=== PATIENT | female | born 1985 | race Caucasian/White ===

== ENCOUNTER 2022-08-28 12:53 | Emergency (ER) | payer OTHER, SELFPAY ==
--- NOTE | ~2022-08-28 | US_ITS ---
US venous doppler [facility] DATE: 08/28/2022 13:49 INDICATION: Left calf pain TECHNIQUE: Real-time and color flow imaging and Doppler analysis of the veins of the left lower extre mity COMPARISON: None FINDINGS: The left greater saphenous vein is patent. There is spontaneous and phasic flow and normal augmentation and color flow signal and normal compression of the deep veins of the left leg. IMPRESSION: No evidence of deep venous thrombosis of left lower extremity Reviewed, dictated and finalized at [facility]. Reviewed, dictated and finalized at location []
[2022-08-28 12:55] VITALS: BP 117/83; PULSE 61; RESP 18; TEMP 36.3; O2SAT 100
--- NOTE | 2022-08-28 13:39 | ED.LOWEXIN ---
HPI - Extremity Injury (Lower) General Chief Complaint: Extremity Injury, Lower Stated Complaint: left calf pain Time Seen by Provider: 08/28/22 13:18 History of Present Illness HPI Narrative: 36-year-old female presents to the emergency room for evaluation of left calf pain. Patient states she began experiencing left calf pain yesterday while walking, and this morning she felt a ripping sensation in her left calf. Patient describes pain as stabbing. Pain is worse when ambulating. Has not taken any medications for her symptoms. No history of DVTs. Patient denies coagulopathy disorder. Patient is not on control. Patient denies long periods of immobility. Related Data Allergies Allergy/AdvReac Type Severity Reaction Status Date / Time tramadol Allergy Intermediate SEVERE Verified 08/28/22 13:12 ITCHING Sulfa (Sulfonamide Allergy Mild Hives / Verified 08/28/22 13:12 Antibiotics) Red Face Review of Systems Review of Systems: CONSTITUTIONAL: Denies fever, chills, or sweats. EYES: Denies visual changes, redness, or discharge. ENT: Denies rhinorrhea, congestion, sore throat, or otalgia. CARDIOVASCULAR: Denies chest pain, palpitations, or edema. RESPIRATORY: Denies cough or dyspnea. GASTROINTESTINAL: Denies abdominal pain, nausea, vomiting, or diarrhea. GENITOURINARY: Denies dysuria or hematuria. SKIN: Denies rash or itching. MUSCULOSKELETAL: Reports left calf pain NEUROLOGIC: Denies headache, numbness, dizziness, or weakness. PSYCHIATRIC: Denies anxiety or depression. Exam Narrative: GENERAL: Well-appearing, well-nourished, no physical limitations, and in no acute distress. HEAD: Normocephalic, atraumatic. EYES: Conjunctivae normal, PERRLA and EOMI. CHEST: Clear to auscultation. No respiratory distress. No wheezes rales or rhonchi. HEART: Regular rate and rhythm. No murmur heard. Normal peripheral pulses. EXTREMITIES: LLE: Muscle spasm noted to left calf. Positive Homans' sign. No ecchymosis, swelling or erythema noted. SKIN: Warm, dry, no rash. No noted wounds NEURO: No focal deficits. Alert and oriented x3. MAEW. CN's II-XI intact bilaterally, normal gait PSYCH: Cooperative. Normal mood and affect. Course Vital Signs Vital signs: Vital Signs Temperature 36.3 C L 08/28/22 12:55 Pulse Rate 61 08/28/22 12:55 Respiratory Rate 18 08/28/22 12:55 Blood Pressure 117/83 08/28/22 12:55 Pulse Oximetry 100 08/28/22 12:55 Oxygen Delivery Room Air 08/28/22 12:55 Temperature 36.3 C L 08/28/22 12:55 Pulse Rate 61 08/28/22 12:55 Respiratory Rate 18 08/28/22 12:55 Blood Pressure 117/83 08/28/22 12:55 Pulse Oximetry 100 08/28/22 12:55 Oxygen Delivery Room Air 08/28/22 12:55 Discharge Plan Discharge Clinical Impression: Muscle spasm Patient Disposition: Home, Self-Care Condition: Stable Instructions: Antibiotic Form Prescriptions: New naproxen 500 mg tablet 500 mg PO BID Qty: 20 0RF methocarbamol 500 mg tablet 500 mg PO TID Qty: 21 0RF Follow-up/Referrals: Landon Jimenez MD [Primary Care Provider] - Time of Disposition: 14:11
== END 2022-08-28 14:15 | disposition home or self-care (01) ==
PROVIDERS: Emergency Provider Nurse Practitioner Family; PCP Emergency Medicine
DX: M62.831 Muscle spasm of calf (principal)
CPT/HCPCS: 93971; 99284

== ENCOUNTER 2023-03-11 14:52 | Emergency (ER) | payer OTHER, SELFPAY ==
[2023-03-11] VITALS (8 sets, daily range): BP systolic 112–140; BP diastolic 56–83; PULSE 71–89; RESP 12–20; TEMP 35.9–36.4; O2SAT 98–100
--- NOTE | ~2023-03-11 | CT_ITS ---
EXAMINATION: CT abdomen pelvis w con DATE: 03/11/2023 17:51 INDICATION: Left lower abdominal pain. Left lower back pain. Nausea and vomiting. TECHNIQUE: Computed tomography (CT) of the abdomen and pelvis was performed with 100 mL Omnipaque 350 intravenous contrast. Automated exposure control and iterative reconstruction technique were employe d. The dose-length product was 1405.30 mGy-cm. COMPARISON: CT abdomen and pelvis 07/19/2010 FINDINGS: The visualized portions of the lung bases are clear without pneumonia or pleural effusion. The heart size is normal. No pericardial effusion. There are cysts in the liver measuring up to 13 mm the gallbladder, spleen, pancreas, and adrenal glands are normal. There are cysts in the kidneys bruno suring up to 12 mm on the right. There is a left-sided tube ligation clip. The right-sided tubal liga tion clip is dislodged. There are no dilated loops of bowel. The appendix is normal. There are no pat hologically enlarged lymph nodes. There is no free intraperitoneal fluid. There is mild thoracic and lumbar spondylosis. IMPRESSION: 1. No etiology for the patient's symptoms. Reviewed, dictated and finalized at location E. OL PSYCHOLOGIST ASSISTANT
--- NOTE | ~2023-03-11 | XR_ITS ---
EXAMINATION: XR chest 1V portable DATE: 03/11/2023 17:54 INDICATION: Abdominal pain. TECHNIQUE: A single frontal view of the chest was obtained. COMPARISON: CT abdomen and pelvis 03/11/2023 FINDINGS: There is no pneumonia, pleural effusion, or pneumothorax. The heart size is normal. IMPRESSION: 1. No acute cardiopulmonary disease. Reviewed, dictated and finalized at location E. RNAL RECRUITER
[2023-03-11 15:43] LABS: Basophils Percent Auto 0.2 % (0.2-1.2); Eosinophils Percent Auto 0.1 % (0-4.4); Hematocrit 45.9 % (37.0-47.0); Hemoglobin 14.8 g/dL (12.0-15.0); Immature Granulocyte Absolute 0.08 K/mm3 (0.00-0.031); Immature Granulocyte Percent A 0.4 % (0-0.5); Lymphocytes Absolute Auto 1.16 K/mm3 (0.9-3.2); Lymphocytes Percent Auto 6.5 % (18.3-44.2); Mean Corpuscular HGB Conc 32.2 g/dl (32-36); Mean Corpuscular Hemoglobin 29.7 pg (26-34); Mean Corpuscular Volume 92.2 fl (80-100); Mean Platelet Volume 8.4 fl (7.4-10.4); Monocytes Percent Auto 5.8 % (2.6-8.5); Neutrophils Absolute Auto 15.5 K/mm3 (1.3-6.7); Platelet Count Result 323 k/mm3 (150-375); Red Blood Count 4.98 M/mm3 (4.2-5.4); Red Cell Distribution Width 12.8 % (11.5-14.5); White Blood Count 17.8 K/mm3 (4.5-10.0)
[2023-03-11 15:53] LABS: Alanine Aminotransferase 21 U/L (6-35); Alkaline Phosphatase 96 U/L (38-126); Anion Gap 9 mmol/L (8-16); Aspartate Amino Transferase 22 U/L (14-36); Bilirubin,Total 0.8 mg/dL (0.2-1.3); Blood Urea Nitrogen 14 mg/dL (7-17); Calcium 8.9 mg/dL (8.4-10.2); Carbon Dioxide 23 mmol/L (22-30); Chloride 106 mmol/L (98-107); Estimated CRCL calculation 108 ml/min; Estimated Glomerular Filt Rate > 60; Glucose 99 mg/dL (65-110); Lipase 80 U/L (23-300); Potassium 3.7 mmol/L (3.4-5.0); Sodium 138 mmol/L (137-145)
[2023-03-11 16:30] LABS: Appearance Urine Turbid (Clear); Bacteria Urine 4+ /hpf; Bilirubin Urine Negative (Negative); Blood Urine Trace (Negative); Color Urine Yellow (Yellow); Glucose Urine UA Negative (Negative); Ketones Urine Trace mg/dL (Negative); Leukocyte Esterase Ur 1+ LEU/UL (Negative); Need Manual Microscopic Reviewed; Nitrate Urine Negative (Negative); Non Pathogenic Casts 0-2; Protein Urine Negative (Negative); RBC Urine 0-2 /hpf (0-2); Specific Grav Ur 1.022 (1.001-1.035); Squamous Epithelial Cell Urine Many /hpf (Few); Urobilinogen Urine 0.2 mg/dL (<2.0); WBC Urine 0-5 /hpf
[2023-03-11 16:31] LABS: Add Urine Microscopic? YES
--- NOTE | 2023-03-11 17:30 | ECG_ITS ---
Measurements Intervals Grant Rate: 71 P: 49 MO: 163 QRS: 38 QRSD: 97 T: 31 QT: 417 QTc: 454 Interpretive Statements SINUS RHYTHM LOW QRS VOLTAGE IN PRECORDIAL LEADS [QRS DEFLECTION < 1.0 mV IN CHEST LEADS] BASELINE ARTIFACT BORDERLINE ECG NO PREVIOUS ECG AVAILABLE FOR COMPARISON Electronically Signed On 03-12-2023 15:33:45 [employer] by Mathew Hooper M.D.
--- NOTE | 2023-03-11 17:35 | ED.ABDPAIN ---
HPI - Abdominal Pain General Chief Complaint: Abdominal Pain Stated Complaint: abd pain/n/v Time Seen by Provider: 03/11/23 15:44 Source: patient Limitations: no limitations History of Present Illness HPI narrative: Patient is a 37-year-old female presents to the emergency department complaining of abdominal pain. Patient states around 5:30 a.m. this morning she gradually developed abdominal pain, nausea, vomiting, diarrhea. patient states the pain is mostly in the left side of her abdomen and wraps around to her back but is also diffuse throughout her abdomen, feels like contractions, constant, has not noticed anything making it better or worse, his to a similar history of this type of pain in the past when she had a urinary tract infection denies taking anything for the pain. Patient states that she has had multiple episodes of nonbloody nonbilious emesis today. Patient states her diarrhea has been watery without any blood in it or Dr. Nature and she has had 4 episodes today. Patient admits to some slight abdominal cramping yesterday but is much worse today. Patient was her last menstrual period was March 09. Patient admits to history of a tubal ligation. Patient admits to taking his Zofran at home. Patient denies history of kidney stones. Patient denies dysuria, hematuria, urinary frequency, urinary urgency, chest pain, shortness of breath, cough, numbness, weakness, sore throat, nasal congestion, rash, recent injuries, recent illness. Patient denies vaginal bleeding or vaginal discharge. Related Data Allergies Allergy/AdvReac Type Severity Reaction Status Date / Time tramadol Allergy Intermediate SEVERE Verified 03/11/23 15:46 ITCHING Sulfa (Sulfonamide Allergy Mild Hives / Verified 03/11/23 15:46 Antibiotics) Red Face Review of Systems Review of Systems: A 10 system review of systems was completed on the patient and is negative except for what is stated in the HPI. Nursing and ancillary documentation was reviewed. PMFSH Comments At time of signature, I have reviewed and agree with nursing past medical, surgical, social and family history unless otherwise noted. Please see the nursing chart for further information. There is no relevant family history pertinent to the presenting complaint. Exam Narrative: CONST: No acute distress. Well nourished. HENMT: Head is normocephalic and atraumatic. Dry mucous membranes. No posterior oropharynx erythema. EYES: No conjunctival icterus, injection, or pallor. PERRL. NECK: No meningeal signs. RESP: Able to speak in full sentences. Normal respiratory effort. CTAB. CARDIO: Regular rate. Regular rhythm. 2+ DP and radial pulses bilaterally. GI: Nondistended. Soft. mild tenderness to palpation diffusely but more prominent in the left mid abdominal region. No rebound or guarding or rigidity. No McBurney's point tenderness palpation. Her negative Hernández sign. Negative psoas sign, Rovsing sign, obturator's sign. No palpable masses or hernias. : No CVA tenderness to palpation. SKIN: No rashes or lesions noted on exposed skin. NEURO: Oriented x3. Moves all extremities. EXTREM/MSK/BACK: No pedal edema. PSYCH: Normal affect. Course Vital Signs Vital signs: Vital Signs Temperature 96.7 F L 03/11/23 15:12 Pulse Rate 89 03/11/23 15:12 Respiratory Rate 20 03/11/23 15:12 Blood Pressure 140/83 03/11/23 15:12 Pulse Oximetry 100 03/11/23 15:12 Oxygen Delivery Room Air 03/11/23 15:12 Temperature 96.7 F L 03/11/23 15:12 Pulse Rate 76 03/11/23 18:46 Respiratory Rate 14 03/11/23 18:46 Blood Pressure 114/70 03/11/23 18:46 Pulse Oximetry 100 03/11/23 18:46 Oxygen Delivery Room Air 03/11/23 15:12 MDM - Abdominal Pain MDM Narrative Medical decision making narrative: Patient presents with the above complaint. Initial vitals are remarkable for no significant abnormalities. Physical examination as noted above
[2023-03-11 18:00] LABS: Magnesium 1.5 mg/dL (1.6-2.3)
[2023-03-11 18:03] LABS: Prothrombin Time 13.3 Seconds (11.1-14.7)
[2023-03-11] MEDS: SODIUM CHLORIDE 0.9% IV 1,000 ML 999 ML IV CONT (18:04)
[2023-03-11] MEDS: ONDANSETRON INJ 4 MG/2 ML VIAL IV PUSH (18:05)
[2023-03-11] MEDS: KETOROLAC 15 MG/ML VIAL (*BKC) IV PUSH (18:05)
[2023-03-11] MEDS: FAMOTIDINE 20 MG/2 ML VIAL IV PUSH (18:06)
[2023-03-11 18:13] LABS: Troponin I < 0.012 ng/mL (0.000-0.034)
[2023-03-11 18:17] LABS: Lactic Acid Reflex 1.4 mmol/L (0.7-2.0)
[2023-03-11] MEDS: MAGNESIUM SULF 2 GM/WATER 50ML 2 GM/50 ML BAG IVPB (18:57)
[2023-03-11 19:04] LABS: Influenza A QL RT-PCR Negative (Negative); Influenza B QL RT-PCR Negative (Negative); SARS-CoV-2 RNA PCR Negative (Negative)
--- NOTE | 2023-03-11 19:10 | PC.NURSE ---
Report given to Tru REDDING, all questions answered.
== END 2023-03-11 20:00 | disposition home or self-care (01) ==
PROVIDERS: Emergency Provider Student in an Organized Health Care Education/Training Program
DX: K52.9 Noninfective gastroenteritis and colitis, unspecified (principal); E83.42 Hypomagnesemia; R10.9 Unspecified abdominal pain; Z20.822 Contact with and (suspected) exposure to COVID-19
CPT/HCPCS: 36415; 71045; 74177; 80053; 81001; 81025; 83605; 83690; 83735; 84484; 85025; 85610; 85730; 87636; 93005; 96361; 96365; 96375; 99284; J1885; J2405; J3475; J7030; Q9967

== ENCOUNTER 2024-06-12 18:12 | Emergency (ER) | payer OTHER, SELFPAY ==
--- NOTE | ~2024-06-12 | CT_ITS ---
EXAMINATION: CT abdomen pelvis wo con DATE: 06/12/2024 19:38 INDICATION: Left flank pain TECHNIQUE: Computed tomography (CT) of the abdomen and pelvis was performed without intravenous contr ast. Automated exposure control and iterative reconstruction technique were employed. Exam dose: 160 6.15 mGy-cm total exam DLP. COMPARISON: None. FINDINGS: The lung bases are clear. Normal heart size. No pericardial or pleural effusion. The liver, gallbladder, spleen, pancreas, adrenal glands and kidneys are unremarkable. No bile duct o r pancreatic duct dilatation. No urinary tract calculus or hydroureteronephrosis. Normal caliber of the abdominal aorta. No intraperitoneal or retroperitoneal or pelvic mass lesion or adenopathy or ascites. The uterus, adnexal areas and urinary bladder are unremarkable. Normal appendix. Diverticulosis of left and right colon; no CT evidence of diverticulitis. No bowel obstruction, bowel wall thickening, pneumatosis or intraperitoneal free air. Small fat-containing umbilical hernia. Included skeletal structures are unremarkable. IMPRESSION: Normal appendix Mild diverticulosis of left and right colon; no CT evidence of diverticulitis No urinary tract calculus or hydroureteronephrosis Reviewed, dictated and finalized at [facility]. Reviewed, dictated and finalized at [facility].
--- OUTSIDE RECORDS SUMMARY | 2024-06-12 18:14 | XMS_ITS | Referral Summary ---
Author Organization 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 Name Role Phone Unknown, Notinfile Primary Care Provider Unavail able Allergies Active Allergy Reactions Criticality Noted Date Comments Sulfa (Sulfonamide Antibiotics) Hives Medium 09/21 Medications No known medications Active Problems No known active problems Immunizations Immunization Administration Dates Next Due DTP 10/27/1991, 9,08/23/1987,05/17,05/04/1987,02/22/1987 Hep B, Adolescent or Pediatric 11/03/1997,1996,09/13/1996 HiB 11/07/1988,10/28/1988 Influenza, Quadrivalent, Spl it, Intramuscular 01/02/2017 Influenza, Trivalent, Preser vative Free, Intramuscular 02/07/2016 Influenza, Unspecified 11/22/2021(Deferred: Raissa ent decision) MMR 10/27/1991,02/21/1988 OPV 10/27/1991, 9,08/23/1987,05/17,05/04/1987,02/22/1987 Social History Tobacco Use Types Packs/Day Years Used Date Smoking Tobacco: Never Smokeless Tobacco: Never Tobacco Cessation:Counseling Given: Not Answered Personal Safety Answer Date Recorded Getting School Help Needed Not on file 05/21 Comments Unknown Sex and Gender Information Value Date Recorded Sex Assigned at Not on file Legal Sex 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
--- OUTSIDE RECORDS SUMMARY | 2024-06-12 18:14 | XMS_ITS | CONTINUITY OF CARE DOCUMENT ---
Author Name yi richmond Address Unknown Organization [facility] Address [address] [address] [place] [address] Phone [phone] Care Team Providers Care Insurance Executive Name Role Phone yi richmond Unavailable Unavailable INSURANCE PROVIDERS Payer name Policy type / Coverage type Yuri red republican [employer] Medicaid 1 [id number]
--- OUTSIDE RECORDS SUMMARY | 2024-06-12 18:14 | XMS_ITS | Data Portability ---
Author Organization [facility] [place] Address [address] [place] [address] Assessment No assessment recorded. Plan of Treatment Reminders Order Date Submit Date Provider Last Modified By Organization Details Last Modified Time Details Appointments None recorded. Lab urinalysi s, dipstick 2019 [email or web address] [address], [address], [place], [address], 0 17:53:07 Referral None recorded. Procedures None recorded. Surgeries None recorded. Imaging None recorded. Medication Orders Diflucan 150 mg tablet 2019 020 INTERFACE [id number], [address] [facility], [place], [place], [id number], 0 17:09:32 Cipro 500 mg tablet 2019 020 INTERFACE [facility][id number], [address] , [place], [place], [id number], 0 17:09:32 Patient TargetsNo targets recorded. Patient InstructionsNo instructions recorded. Reason for Referral None Reported. Results Created Date Observation Date Name Description Value Unit Range Abnormal Flag Note LastModifiedBy Organization Detail LastModifiedTime 01/17/2001/19/2020 cultu re, urine specimen source Urine - Void Not Available [facility]) [address] [facility] [address], [place], [address], 01/19/2020 04:56:42 01/17/20 20 01/19/2020 cultu re, urine culture, urine See Below No growt h Not Available [facility]) [address] [facility] [address] [address], [place], [address], 01/19/2020 04:56:42 01/17/20 20 01/18/2020 bacte rial vagin osis + vagin itis panel , vagin al freeman sp. Not Detect ed normal Trich omona s vagin gwen: DNA testi ng perfo rmed by Trans cript ion Media gely Ampli ficat ion (TMA) These resul ts shoul d be inter prete d in light of all clini nolberto and labor atory findi ngs. This assay is highl y accur ate, but rare false posit kaur and negat kaur resul ts may occur . Posit kaur resul ts in low preva lence popul ation s may requi re re-ev aluat ion. A negat kaur resul t does not precl ude a possi ble infec tion due to a speci men inade quacy or sampl ing error . Test perfo rmed by [facility], [facility], d/b/a [facility], [address] [address], [place] [address] , Gina Kessler ra, DO, Labor atory Direc tor. Gardn erell a vagin gwen, Promise da speci es: Genom ic DNA is isola gely from patie nt speci mens by stand anna labor atory techn iques and nigel zed using custo m OpenA rray plate s, perfo rmed on the Quant Studi o 12K Flex Real Time PCR syste m. A posit kaur resul t is provi ded for patho genic bacte faiza, virus and/o r funga l speci es based on detec tion of ampli ficat ion produ cts. Chichi l vagin al yamel resul ts of Chichi l or Avalon gely are deter mined by calcu latin g the ratio of the organ ism to the total bacte faiza prese nt in the speci men, and renetta ring that ratio to a PathG roup patie nt popul ation . Overa ll resul ts of Chichi l, Borde rline and Abnor mal are deter mined using a proba bilit y model which was devel oped by an exten sive nigel sis and integ ratio n of clini nolberto thres holds for marke r organ isms on a large set of sympt omati c & asymp tomat ic speci mens. Patie nt popul ation s with diffe rent demog raphi cs from the PathG roup model popul ation may have diffe rent indic ator organ isms with diffe rent relat kaur ratio s, which would influ ence the final resul ts. Resul ts shoul d be inter prete d in the mary lou xt of all clini nolberto and labor atory findi ngs. The test was devel oped and its perfo rmanc e parish cteri stics deter mined by [employer], [employer] d/b/a [facility]. It has not been clear ed or appro danyel by the U.S. Food and Drug Admin istra tion. The FDA has deter mined that such clear ance or appro jill is not neces anna. Perti nent refer ence inter vals are avail able from the [employer] atory on reque st. Test( s) perfo rmed by [employer], d/b/a Path rou, [address], [place] [address] , Gina Kessler ra, DO, Labor atory Direc tor. Not Available [facility] ([facility]) [address] [facility] [address], [place], [address], 01/19/2020 18:00:09 01/17/20 20 01/18/2020 bacte rial vagin osis + vagin itis panel , vagin al gardnerella vaginalis Not Detect ed normal Trich omona s vagin gwen: DNA testi ng perfo rmed by Trans cript ion Media gely Ampli ficat ion (TMA) These resul ts shoul d be inter prete d in light of all clini nolberto and labor atory findi ngs. This assay is highl y accur ate, but rare false posit kaur and negat kaur resul ts may occur . Posit kaur resul ts in low preva lence popul ation s may requi re re-ev aluat ion. A negat kaur resul t does not precl ude a possi ble infec tion due to a speci men inade quacy or sampl ing error . Test perfo rmed by [facility], d/b/a [facility] roubetzy, [address], [place] [address] , Gina Kessler ra, DO, Labor atory Direc tor. Aurea alonso a vagin gwen, Promise da speci es: Genom ic DNA is isola gely from patie nt speci mens by stand anna labor atory techn iques and nigel zed using custo m OpenA rray plate s, perfo rmed on the Quant Studi o 12K Flex Real Time PCR syste m. A posit kaur resul t is provi ded for patho genic bacte faiza, virus and/o r funga l speci es based on detec tion of ampli ficat ion produ cts. Chichi l vagin al yamel resul ts of Chichi l or Avalon gely are deter mined by calcu latin g the ratio of the organ ism to the total bacte faiza prese nt in the speci men, and renetta ring that ratio to a PathG roup patie nt popul ation . Overa ll resul ts of Chichi l, Borde rline and Abnor mal are deter mined using a proba bilit y model which was devel oped by an exten sive nigel sis and integ ratio n of clini nolberto thres holds for marke r organ isms on a large set of sympt omati c & asymp tomat ic speci mens. Patie nt popul ation s with diffe rent demog raphi cs from the PathG roup model popul ation may have diffe rent indic ator organ isms with diffe rent relat kaur ratio s, which would influ ence the final resul ts. Resul ts shoul d be inter prete d in the mary lou xt of all clini nolberto and labor atory findi ngs. The test was devel oped and its perfo rmanc e parish cteri stics deter mined by [employer], [employer] d/b/a Path rou. It has not been clear ed or appro danyel by the U.S. Food and Drug Admin istra tion. The FDA has deter mined that such clear ance or appro jill is not neces anna. Perti nent refer ence inter vals are avail able from the labor atory on reque st. Test( s) perfo rmed by [employer], [employer], d/b/a Path [facility], [address], [place] [address] , Gina Kessler ra, DO, Labor atory Direc tor. Not Available [facility] ([facility]) [address] [facility], [place], [address], 01/19/2020 18:00:09 01/17/20 20 01/19/2020 bacte rial vagin osis + vagin itis panel , vagin al trichomonas vaginalis, aptima (panther) DETECT ED abnormal Trich omona s vagin gwen: DNA testi ng perfo rmed by Trans cript ion Media gely Ampli ficat ion (TMA) These resul ts shoul d be inter prete d in light of all clini nolberto and labor atory findi ngs. This assay is highl y accur ate, but rare false posit kaur and negat kaur resul ts may occur . Posit kaur resul ts in low preva lence popul ation s may requi re re-ev aluat ion. A negat kaur resul t does not precl ude a possi ble infec tion due to a speci men inade quacy or sampl ing error . Test perfo rmed by [employer], [employer], d/b/a [facility]oup, [address], [place] [address] , Gina Kessler ra, DO, Labor atory Direc tor. Aurea alonso a vagela hidalgo, Promise da speci es: Genom ic DNA is isola gely from patie nt speci mens by stand anna labor atory techn iques and nigel zed using custo m OpenA rray plate s, perfo rmed on the Quant Studi o 12K Flex Real Time PCR syste m. A posit kaur resul t is provi ded for patho genic bacte faiza, virus and/o r funga l speci es based on detec tion of ampli ficat ion produ cts. Chichi l vagin al yamel resul ts of Chichi l or Avalon gely are deter mined by calcu latin g the ratio of the organ ism to the total bacte faiza prese nt in the speci men, and renetta ring that ratio to a PathG roup patie nt popul ation . Overa ll resul ts of Chichi l, Borde rline and Abnor mal are deter mined using a proba bilit y model which was devel oped by an exten sive nigel sis and integ ratio n of clini nolberto thres holds for marke r organ isms on a large set of sympt omati c & asymp tomat ic speci mens. Patie nt popul ation s with diffe rent demog raphi cs from the PathG roup model popul ation may have diffe rent indic ator organ isms with diffe rent relat kaur ratio s, which would influ ence the final resul ts. Resul ts shoul d be inter prete d in the mary lou xt of all clini nolberto and labor atory findi ngs. The test was devel oped and its perfo rmanc e parish cteri stics deter mined by [facility], [facility] d/b/a [facility] roup. It has not been clear ed or appro danyel by the U.S. Food and Drug Admin istra tion. The FDA has deter mined that such clear ance or appro jill is not neces anna. Perti nent refer ence inter vals are avail able from the labor atory on reque st. Test( s) perfo rmed by [facility], d/b/a [facility]ijay marroquin, [address] [place] [address] , Gina Kessler ra, DO, Labor atory Direc tor. Not Available [facility] ([facility]) [address] [facility], [place], [address], 01/19/2020 18:00:09 01/17/20 20 01/17/2020 urina lysis , dipst ick Leukocytes ++ Not Available [facility] [address], [place], [address], 01/17/2020 17:01:24 01/17/20 20 01/17/2020 urina lysis , dipst ick Blood ++ Not Available [place] [address], [place], [address], 01/17/2020 17:01:24 Result Notes None recorded. Problems Name Problem SNOMED Code Status Onset Date Resolution Date Notes Provider Name and Address Organization Details Recorded Time Nausea and vomiting 98917323 Active 2010 Nausea And Vomiting;R ecorded Elsewhere: No Locatio n: [facility] rce: EHR Chroni c: N Practice ID: 0001 Billa ble Time: 10:30:00 AM Not Available [facility] 0 18:39:54 Urinary tract infectiou s disease 00745543 Active 2015 Urinary tract infection, site not specified; Recorded Elsewhere: No Locatio n: [facility] rce: EHR Chroni c: N Practice ID: 0001 Billa ble Time: 03:00:00 PM Not Available [facility] 0 18:39:54 Clinical finding Active 2015 Encounter for surveillan ce of injectable contracept kaur;Record ed Elsewhere: No Locatio n: [facility] rce: EHR Chroni c: N Practice ID: 0001 Billa ble Time: 03:30:00 PM Not Available [facility] 0 18:39:[address] Concept Active 2015 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) (routine) w/o abn findings;R ecorded Elsewhere: No Locatio n: [facility] rce: EHR Chroni c: N Practice ID: 0001 Billa ble Time: 08:45:00 AM Not Available [facility] 0 18:39:55 Specializ ed medical examinati on Active 2014 Other specified chlamydial diseases;R ecorded Elsewhere: No Locatio n: [facility] rce: EHR Chroni c: N Practice ID: 0001 Billa ble Time: 01:00:00 PM Not Available [facility] 0 18:39:55 Contracep tion care managemen t Active 2017 Encounter for contracept kaur management , unspecifie d;Recorded Elsewhere: No Locatio n: [facility] rce: EHR Chroni c: N Practice ID: 0001 Billa ble Time: 10:45:00 AM Not Available [facility] 0 18:39:55 Screening for malignant neoplasm of cervix Active 2010 Screening for malignant neoplasms of the cervix;Rec orded Elsewhere: No Locatio n: [facility] rce: EHR Chroni c: N Practice ID: 0001 Billa ble Time: 10:30:00 AM Not Available [facility] 0 18:39:55 Specializ ed medical examinati on Active 2010 Gynecologi nolberto Examinatio n;Recorded Elsewhere: No Locatio n: [facility] rce: EHR Chroni c: N Practice ID: 0001 Billa ble Time: 10:30:00 AM Not Available [facility] 0 18:39:55 Venereal disease screening Active 2014 Screening examinatio n for venereal disease;Re corded Elsewhere: No Locatio n: [facility] rce: EHR Chroni c: N Practice ID: 0001 Billa ble Time: 01:00:00 PM Not Available [facility] 0 18:39:55 Family planning surveilla nce Active 2011 Surveillan ce of other contracept kaur method;Rec orded Elsewhere: No Locatio n: [facility] rce: EHR Chroni c: N Practice ID: 0001 Billa ble Time: 09:00:00 AM Not Available [facility] 0 18:39:55 Acute vaginitis 63906294 Active 2017 Vulvovagin itis;Recor ded Elsewhere: No Locatio n: [facility] rce: EHR Chroni c: N Practice ID: 0001 Billa ble Time: 04:30:00 PM Not Available [facility] 0 18:39:[address] Concept Active 2015 Encntr for general adult medical exam w/o abnormal findings;R ecorded Elsewhere: No Locatio n: [facility] rce: EHR Chroni c: N Practice ID: 0001 Billa ble Time: 08:45:00 AM Not Available [facility] 0 18:39:55 Leukocyto sis 832194257 Active 2014 LEUKOCYTOS IS NOS;Record ed Elsewhere: No Locatio n: [facility] rce: EHR Chroni c: N Practice ID: 0001 Billa ble Time: 01:00:00 PM Not Available [facility] 0 18:39:55 test negative 639147817 Active 2016 Encounter for test, result negative;R ecorded Elsewhere: No Locatio n: [facility] rce: EHR Chroni c: N Practice ID: 0001 Billa ble Time: 02:00:00 PM Not Available [facility] 0 18:39:56 Steriliza tion procedure Active 2018 Encounter for sterilizat ion;Practi ce ID: 0001 Not Available [facility] 0 18:39:56 test positive 161994316 Active 2010 examinatio n or test, positive result;Rec orded Elsewhere: No Locatio n: [facility] rce: EHR Chroni c: N Practice ID: 0001 Billa ble Time: 10:30:00 AM Not Available [facility] 0 18:39:56 Vaginolab ial hernia Active 2015 Other specified noninflamm atory disorders of vagina;Rec orded Elsewhere: No Locatio n: [facility] rce: EHR Chroni c: N Practice ID: 0001 Billa ble Time: 03:00:00 PM Not Available [facility] 0 18:39:56 Routine care Active 2010 Supervisio n of other normal ; Recorded Elsewhere: No Locatio n: [facility] rce: EHR Chroni c: N Practice ID: 0001 Billa ble Time: 10:30:00 AM Not Available [facility] 0 18:39:56 Postpartu m care Active 2011 Routine follow-up; Recorded Elsewhere: No Locatio n: [facility] rce: EHR Chroni c: N Practice ID: 0001 Billa ble Time: 01:30:00 PM Not Available [facility] 0 18:39:56 Adult health examinati on Active 2014 ROUTINE MEDICAL EXAM;Recor ded Elsewhere: No Locatio n: [facility] rce: EHR Chroni c: N Practice ID: 0001 Billa ble Time: 01:00:00 PM Not Available [facility] 0 18:39:56 Genital herpes simplex 54225985 Active 2014 Genital herpes simplex;Re corded Elsewhere: No Locatio n: [facility] rce: EHR Chroni c: N Practice ID: 0001 Billa ble Time: 09:00:00 AM Not Available [facility] 0 18:39:57 Atypical squamous cells of undetermi silke significa nce on cervical Papanicol aou smear 979021789 Active 2014 Papanicola ou smear of cervix with atypical squamous cells of undetermin ed significan ce (ASC-US);R ecorded Elsewhere: No Locatio n: [facility] rce: EHR Chroni c: N Practice ID: 0001 Billa ble Time: 09:00:00 AM Not Available [facility] 0 18:39:57 Education Active 2015 Encounter for other general counseling and advice on contracept ion;Record ed Elsewhere: No Locatio n: [facility] rce: EHR Chroni c: N Practice ID: 0001 Vidal ble Time: 08:45:00 AM Not Available [facility] 0 18:39:58 Ill-defin ed intestina l infection Active 2010 No Show Fee;Practi ce ID: 0001 Not Available [facility] 0 18:39:58 Primigrav ruben 442761358 Active 2010 Supervisio n of normal first ; Practice ID: 0001 Not Available [facility] 0 18:39:58 anatomy study Active 2010 SCRN ANATMC SURVEY;Pra ctice ID: 0001 Not Available [facility] 0 18:39:58 Poor growth affecting managemen t 955391825 Active 2011 GROWTH POOR SGA;Practi ce ID: 0001 Not Available [facility] 0 18:39:59 Oligohydr amnios with problem 817407113 Active 2011 Oligohydra mnios, antepartum ;Practice ID: 0001 Not Available [facility] 0 18:39:59 Delivery normal 58369539 Active 2011 Normal delivery;P ractice ID: 0001 Not Available [facility] 0 18:40:00 Single live 894238496 Active 2011 Mother with single liveborn;P ractice ID: 0001 Not Available [facility] 0 18:40:00 Problem Notes None recorded. Procedures Surgical History Date Name Laterality Status Provider Name and Address Organization Details Recorded Time 04/15/2018 Date of Last Pap Smear completed Missy BRIAN [facility] 01/17/2020 16:42:50 Imaging Results None recorded. Procedure Notes None recorded. Medical Equipment None Reported. Allergies Allergen ID Allergen Name Allergen Category Reaction Reaction Severity Criticality Documentation Date Start Date Code Code System Note Provider Name and Address Organization Details Recorded Time 2505 Substance with sulfonami de structure and antibacte rial mechanism of action (substanc e) medicatio n Not available Not available Not available 01/17/2020 23867 8003 SNOMED Missy Marinelli [facility] [place] - [facility] 0 14:55:29 Medications Name Sig Start Date Stop Date Status Note LastModified by Organization Details LastModified Time amoxicill in 500 mg capsule take 1 capsule (500MG) by oral route every 8 hours for 10 days 07/01 completed Prescrib ed Elsewher e: No Locat ion: [facility] odify By: apurva snow DateTime : 06/23/19 12 09:38:08 PM Not Available Not Available Not Available fluconazo le 150 mg tablet Take 1 tablet every 72 hours by oral route. active Not Available Not Available No t Available hydrocodo ne 5 mg-acetam inophen 325 mg tablet TK 1 T PO Q 6 H PRF PAIN CONTROL active Not Available Not Available No t Available metronida zole 500 mg tablet Take all 4 tablets at once by mouth now active Not Available Not Available No t Available acyclovir 400 mg tablet take 2 tablet by oral route 4 times every day for 5 days 03/13 completed Prescrib ed Elsewher e: No Locat ion: [facility]ify By: kmkirkpa trick En counter DateTime : 11/15/19 15 08:30:00 AM Not Available Not Available Not Available ciproflox acin 500 mg tablet TK 1 T PO Q 12 H active Not Available Not Available No t Available Reglan 10 mg tablet take 1 tablet (10MG) by oral route 4 times every day 30 minutes before meals and at bedtime 07/30 completed Prescrib ed Elsewher e: No Locat ion: [facility]ify By: eedmonds Encount er DateTime : 11/24/19 11 10:30:00 AM Not Available Not Available Not Available Zofran 8 mg tablet take 1 tablet (8MG) by oral route every 8 hours for 2 days 11/25 completed Prescrib ed Elsewher e: No Locat ion: [facility]ify By: vivien barry DateTime : 11/24/19 11 10:30:00 AM Not Available Not Available Not Available Depo-Prov era 150 mg/mL intramusc ular suspensio n inject 1 millilit er by intramus cular route every 3 months 06/16 completed Prescrib ed Elsewher e: No Locat ion: [facility] odify By: amphyllis snow DateTime : 05/17/19 15 04:13:59 PM Not Available Not Available Not Available doxycycli ne monohydra te 100 mg capsule TK ONE C PO 2 XD FOR 10 DAYS active Not Available Not Available No t Available Vitamin B-6 50 mg tablet take 1 by Oral route every 12 for 30 12/23 completed Prescrib ed Elsewher e: No Locat ion: [facility] odify By: vivien barry DateTime : 11/24/19 11 10:30:00 AM Not Available Not Available Not Available ibuprofen 600 mg tablet 01/16 completed Not Available Not Available Not Available Vitamin D2 1,250 mcg (50,000 unit) capsule take 1 capsule (04016KF ITS) by oral route every week 07/30 completed Prescrib ed Elsewher e: No [facility] odify By: eedmfoster Encount er DateTime : 04/29/19 12 10:33:22 AM Not Available Not Available Not Available Benadryl Allergy 25 mg tablet take 2 tablet (50MG) by oral route 4 - 6 hours as needed 07/30 completed Prescrib ed Elsewher e: No [facility] odify By: eedmonds Encount er DateTime : 11/24/19 11 10:30:00 AM Not Available Not Available Not Available Depo-Prov era 150 mg/mL intramusc ular syringe inject 1 millilit er by intramus cular route every 3 months 02/09 completed Prescrib ed Elsewher e: No [facility] By: shruti Doran ter DateTime : 09/12/19 18 02:46:32 PM Not Available Not Available Not Available nitrofura ntoin monohydra te/macroc rystals 100 mg capsule TK 1 C PO Q 12 H FOR 10 DAYS active Not Available Not Available No t Available lidocaine 2 % mucosal jelly in applicato r apply to affected area twice daily PRN pain 03/13 completed Prescrib ed Elsewher e: No Locat ion: [facility] odify By: kmkirkpa trick En counter DateTime : 09/08/19 15 01:00:00 PM Not Available Not Available Not Available Vitals Date Recorded Body weight Systolic blood pressure Diastolic blood pressure Provider Name and Address Organization Details Last Updated DateTime 01/17/2020 968990.35 g 119 mm[Hg] 77 mm[Hg] Missy Marinelli [facility] 01/17/2020 16:42:31 Social History None recorded. Functional Status None recorded. Mental Status None recorded. Family History Relationship Description Onset Age of this Age Resolved Age Notes LastModified by Organization Details LastModified Time Father Diabetes mellitus [email or web address] Not available 2019 14:54:26 Maternal Grandmother Malignant tumor of breast [email or web address] Not available 2019 14:54:44 Sister Cyst of ovary [email or web address] Not available 2019 14:55:01 Notes:Father: Diabetes melli tus Maternal grandmother: Cancer, breast Sister: Ovarian Cyst Medical History No medical history recorded. Gynecological History Statement/Question Response Date of Last Pap Smear 04/15/2018 13 Obstetrics History GPAL:G 0 P 0 0 0 0 Past Encounters Encounter ID Performer Location Encounter Start Date Encounter Closed Date Diagnosis/Indication Diagnosis SNOMED-CT Code Diagnosis ICD10 Code Diagnosis Note [id number] Bill Clifton MD [place] [address] [address] 01/17/2020 16:30:34 01/18/2020 16:46:45 Urinary symptoms 909669783 R39.9 Vulvovaginitis 73919304 N76.0 Health Concerns Section Related Observation LastModified by Organization Detai ls LastModified Time None Recorded Concern Status LastModified by Organization Details LastModified Time None Recorded Advance Directives Directive None Recorded Payers Encounter Date Sequence Insurance Name Policy Number Policy Amaya Covered Member ID Amaya Member ID Guarantor Name 01/17/2020 1 [facility] PRIOR TO 09/21/2020 (MEDICAID REPLACEMENT - HMO) Lola Nichols [id number] Lola Nichols Notes Date Note Type Note Provider Name and Address Organization Details Recorded Time 01/17/2020 text/html Vaginal/Vulvar ProblemReported bypatient.Location:v ulva; vagina Duration:present for 1-7 days Quality:itching; burning Severity:moderate Associated Symptoms:no vulvar pain; no vulvar lesions; no pelvic pain; no dysuria;vaginal itching;vaginal irritation;vulvar itching/irritation Bill Clifton MD [address], [place], [address], [facility] 01/17/2020 17:09:40 OBGyn Episode Ob Episode Information Episode Created Date Number of Fetuses Patient Bloodtype Patient rh Status Prepregnancy Weight lbs Domestic Partner Domestic Partner Phone Father Name Executive Asst Status 01/17/20 20 1 CLOSED Fetus Data First Name Last Name Admitted to NICU Weight (g) Sex Living Outcome Pediatric Complications Fetus ID Race Codes Race Delivery Type F [id number] Kaz Calculation Initial Kaz Date Initial Exam Date Initial Exam Provider Initial Ultrasound Date Last Menstrual Period Date Ultra Sound Weeks Gestation 0 Eighteen To Twenty Week Kaz Update Ultra Sound Date Fundal Height At Umbil Quickening Date Ultra Sound Latest Weeks Gestation Final Kaz Confirmed By Final Kaz Confirmed Date Final Kaz Date Ultra Sound Latest Days Gestation 0 0 Menstrual History Last Menstrual Date Menses Monthly On Bcp Conception Prior Menses Frequency Hcg Plus Date Menarche Onset Age Delivery Information Delivery Date Delivery Type Labor Anesthesia Weeks Gestation Incision Type Labor Labor Length Hrs Delivered By Post Complications Tubal Sterilization Discharge Date Comments 2 [facility] Discharge Information Feeding Method Contraceptive Method Maternal HG B and HCT Levels Ob Episode Information Episode Created Date Number of Fetuses Patient Bloodtype Patient rh Status Prepregnancy Weight lbs Domestic Partner Domestic Partner Phone Father Name Executive Asst Status 01/17/20 20 2 CLOSED Fetus Data First Name Last Name Admitted to NICU Weight (g) Sex Living Outcome Pediatric Complications Fetus ID Race Codes Race Delivery Type M [id number] Vaginal Delivery F [id number] Vaginal Delivery Kaz Calculation Initial Kaz Date Initial Exam Date Initial Exam Provider Initial Ultrasound Date Last Menstrual Period Date Ultra Sound Weeks Gestation 0 Eighteen To Twenty Week Kaz Update Ultra Sound Date Fundal Height At Umbil Quickening Date Ultra Sound Latest Weeks Gestation Final Kaz Confirmed By Final Kaz Confirmed Date Final Kaz Date Ultra Sound Latest Days Gestation 0 0 Menstrual History Last Menstrual Date Menses Monthly On Bcp Conception Prior Menses Frequency Hcg Plus Date Menarche Onset Age Delivery Information Delivery Date Delivery Type Labor Anesthesia Weeks Gestation Incision Type Labor Labor Length Hrs Delivered By Post Complications Tubal Sterilization Discharge Date Comments 9 Discharge Information Feeding Method Contraceptive Method Maternal HG B and HCT Levels
--- OUTSIDE RECORDS SUMMARY | 2024-06-12 18:14 | XMS_ITS | Clinical Summary ---
Author Organization [facility] Address [address] [place] [address] Care Team Providers Care Ostomy Rn Name Role Phone None, Provider MD Primary Care Provider Unavaila ble Allergies Active Allergy Reactions Criticality Noted Date Comments Sulfa Antibiotics Hives 10/05/2019 Social History Tobacco Use Types Packs/Day Years Used Date Smoking Tobacco: Never Assessed Comments No Sex and Gender Information Value Date Recorded Sex Assigned at Not on file Legal Sex Female 5:21 PM CDT Gender Identity Not on file Sexual Orientation Not on file Last Filed Vital Signs Vital Sign Reading Time Taken Comments Blood Pressure 117/99 10/05/2019 12:22 PM CDT Pulse 73 10/05/2019 12:22 PM CDT Temperature 36.7 C (98 F) 10/05/2019 12:22 PM CDT Respiratory Rate 16 10/05/2019 12:22 PM CDT Oxygen Saturation 98% 10/05/2019 12:22 PM CDT Inhaled Oxygen Concentration - - Weight 102.1 kg (225 lb) 10/05/2019 12:22 PM CDT Height 160 cm (5' 3 ) 10/05/2019 12:22 PM CDT Body Mass Index 39.86 10/05/2019 12:22 PM CDT Plan of Treatment Health Maintenance Due Date Last Done Comments Cervical Cancer Screening Pa p Smear (Age 30 to 64) Every 3 Years 1986 Annual Physical 1989 Hepatitis C 2004 DTaP, Tdap and Td Vaccines ( 1 - Tdap) 2005 Hepatitis B Vaccines (1 of 3 - 19+ 3-dose series) 2005 Cervical Cancer Screening Pa p with HPV Testing (Age 30 to 64) Every 5 Years 2016 Cervical Cancer Screening with HPV 2016 COVID-19 Vaccine (2023-2 5 season) 2023 Influenza Adult (#1) 2023 HPV Vaccines Aged Out No longer eligi ble based on patient's age to complete this topic Meningococcal B Vaccine Aged Out No l onger eligible based on patient's age to complete this topic Meningococcal Vaccine Aged Out No blane warren eligible based on patient's age to complete this topic Pneumococcal Vaccine: Pediat rics (0 to 5 Years) and At-Risk Patients (6 to 64 Years) Aged Out No longer eligible b ased on patient's age to complete this topic RSV Immunizations Under 20 Months Aged Out No longer eligible based on patient's age to complete this topic Insurance [address] Care Teams Ostomy Rn Relationship Specialty Start Date End Date None, Provider, PCP - General 10/05/19
--- OUTSIDE RECORDS SUMMARY | 2024-06-12 18:14 | XMS_ITS | Clinical Summary ---
Author Organization [facility] Address [address] [place] [address] Care Team Providers Care Venture Capital Analyst Name Role Phone Unknown, Notinfile Primary Care [...] on file Legal Sex Female 5:37 PM [employer] Gender Identity Not on file Sexual Orientation Not on file Obstetrics History Plan of Treatment Health Maintenance Due Date Last Done Comments Cervical Cancer Screening 1986 Depression Screening 1986 Hepatitis C Screening 1986 DTaP/Tdap/Td Vaccine (6 - Tdap) 1997 10/27/1991, 06/27/1988, 08/23/1987, Additional history exists Varicella Vaccines (1 of 2 - 13+ 2-dose series) 10/25/1999 Regular Well Visit/Exam 18-64 2004 Covid-19 Vaccine (2 - 2023- season) 2023 08/19/2021 Influenza Vaccine (#1) 2023 01/02/2017, 2015 Hepatitis B Screening Completed 11/03/1997 , 10/25/1996, 09/13/1996 HPV Vaccines Aged Out No longer eligi ble based on patient's age to complete this topic Pneumococcal vaccine <65 Aged Out No longer eligible based on patient's age to complete this topic Insurance [facility] Care Teams Venture Capital Analyst Relationship Specialty Start Date End Date Unknown, Notinfile PCP - General 09/19/22
[2024-06-12 18:23] VITALS: BP 123/72; PULSE 80; RESP 16; TEMP 36.2; O2SAT 97
[2024-06-12 18:40] LABS: BEDSIDEPREGUCG Negative (Negative)
[2024-06-12 18:43] LABS: Basophils Percent Auto 0.3 % (0.2-1.2); Eosinophils Absolute Auto 0.1 K/mm3 (0-0.3); Eosinophils Percent Auto 0.9 % (0-4.4); Hematocrit 44.3 % (37.0-47.0); Hemoglobin 14.5 g/dL (12.0-15.0); Immature Granulocyte Absolute 0.04 K/mm3 (0.00-0.031); Immature Granulocyte Percent A 0.5 % (0-0.5); Lymphocytes Absolute Auto 2.34 K/mm3 (0.9-3.2); Lymphocytes Percent Auto 30.7 % (18.3-44.2); Mean Corpuscular HGB Conc 32.7 g/dl (32-36); Mean Corpuscular Hemoglobin 30.1 pg (26-34); Mean Corpuscular Volume 92.1 fl (80-100); Mean Platelet Volume 8.7 fl (7.4-10.4); Monocytes Percent Auto 12.7 % (2.6-8.5); Neutrophils Absolute Auto 4.2 K/mm3 (1.3-6.7); Neutrophils Percent Auto 54.9 % (45.5-73.1); Platelet Count Result 321 k/mm3 (150-375); Red Blood Count 4.81 M/mm3 (4.2-5.4); Red Cell Distribution Width 13.2 % (11.5-14.5); White Blood Count 7.6 K/mm3 (4.5-10.0)
[2024-06-12 18:52] LABS: Alanine Aminotransferase 19 U/L (6-35); Albumin Level 3.9 g/dL (3.5-5.1); Alkaline Phosphatase 85 U/L (38-126); Anion Gap 8 mmol/L (4-12); Aspartate Amino Transferase 19 U/L (14-36); Bilirubin,Total 0.8 mg/dL (0.2-1.3); Blood Urea Nitrogen 11 mg/dL (7-17); Calcium 8.7 mg/dL (8.4-10.2); Carbon Dioxide 24 mmol/L (22-30); Chloride 107 mmol/L (98-107); Estimated CRCL calculation 101 ml/min; Estimated Glomerular Filt Rate > 60; Glucose 87 mg/dL (65-110); Lipase 83 U/L (23-300); Sodium 139 mmol/L (137-145)
[2024-06-12] MEDS: MORPHINE SULFATE (*CRX) 4 MG/ML INJ IV PUSH (19:23)
--- OUTSIDE RECORDS SUMMARY | 2024-06-12 19:23 | XMS_ITS | CONTINUITY OF CARE DOCUMENT ---
Author Name yi richmond Address Unknown Organization [facility] Address [address] [place] [address] Phone [phone] Care Team Providers Care Spiral Runner Name Role Phone yi richmond Unavailable Unavailable INSURANCE PROVIDERS Payer name Policy type / Coverage type Yuri red democrat [employer] [facility] [facility] Medicaid 1 [id number]
--- OUTSIDE RECORDS SUMMARY | 2024-06-12 19:23 | XMS_ITS | Clinical Summary ---
Author Organization 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
--- OUTSIDE RECORDS SUMMARY | 2024-06-12 19:23 | XMS_ITS | Clinical Summary ---
Author Organization [facility] Address [address] [place] [address] Care Team Providers Care Butter Wrapper Name Role Phone None, Provider MD Primary [...] age to complete this topic Insurance [address] Care Teams Butter Wrapper Relationship Specialty Start Date End Date None, Provider, PCP - General 10/05/19
--- OUTSIDE RECORDS SUMMARY | 2024-06-12 19:23 | XMS_ITS | Referral Summary ---
Author Organization 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
[2024-06-12 19:34] LABS: Add Urine Microscopic? YES; Appearance Urine Cloudy (Clear); Bacteria Urine None Seen /hpf; Bilirubin Urine 2+ (Negative); Blood Urine 3+ (Negative); Color Urine Orange (Yellow); Glucose Urine UA Negative (Negative); Ketones Urine Negative (Negative); Leukocyte Esterase Ur 2+ LEU/UL (Negative); Need Manual Microscopic Reviewed; Nitrate Urine Positive (Negative); Non Pathogenic Casts 0-2; Protein Urine 1+ mg/dL (Negative); RBC Urine 51-100 /hpf (0-2); Specific Grav Ur 1.017 (1.001-1.035); Squamous Epithelial Cell Urine Occasional /hpf (Few); WBC Urine 0-5 /hpf (0-3); pH Urine 5.5 (5.0-9.0)
[2024-06-12 20:15] VITALS: BP 120/79; PULSE 60; RESP 15; O2SAT 98
--- NOTE | 2024-06-12 20:18 | ED.FEMALEGU ---
HPI - Female Genitourinary General Chief complaint: Urogenital-Female Stated complaint: DX w/ UTI at today, low back pain Time Seen by Provider: 06/12/24 19:03 History of Present Illness HPI Narrative: 38-year-old female presents emergency department for left flank pain that started last night around 8:00 p.m.. Patient states the pain is located in her left flank and at times radiates into her left lower quadrant and down her buttock. She denies injury or trauma. She states she has never pain like this before. Denies dysuria or hematuria, history of kidney stones. She went to urgent care earlier today and was told she had a UTI. She was given Cipro, 1st dose taken earlier today. She states her pain has continued increased she came to the ED for further evaluation. She denies fever, nausea or vomiting. Patient is currently on her menstrual cycle. Related Data Allergies Allergy/AdvReac Type Severity Reaction Status Date / Time tramadol Allergy Intermediate SEVERE Verified 06/12/24 18:28 ITCHING Sulfa (Sulfonamide Allergy Mild Hives / Verified 06/12/24 18:28 Antibiotics) Red Face Review of Systems Review of Systems: All systems reviewed & are unremarkable except as noted in HPI and below Exam Narrative: GENERAL: Well-appearing, well-nourished, and in no acute distress. HEAD: Normocephalic, atraumatic. ENT: Nares clear, no rhinorrhea or epistaxis. Mucous membranes moist. NECK: Supple. CHEST: Clear to auscultation. No respiratory distress. HEART: Regular rate and rhythm. No murmur heard. Normal peripheral pulses. ABDOMEN: Mild tenderness to the LLQ with no rebound, guarding or rigidity. Left-sided CVA tenderness EXTREMITIES: Normal range of motion. No edema. SKIN: Warm, dry, no rash. NEURO: No focal deficits. Alert and oriented x3 Course Vital Signs Vital signs: Vital Signs Temperature 97.1 F L 06/12/24 18:23 Pulse Rate 80 06/12/24 18:23 Respiratory Rate 16 06/12/24 18:23 Blood Pressure 123/72 06/12/24 18:23 Pulse Oximetry 97 06/12/24 18:23 Oxygen Delivery Room Air 06/12/24 18:23 Temperature 97.1 F L 06/12/24 18:23 Pulse Rate 80 06/12/24 18:23 Respiratory Rate 16 06/12/24 18:23 Blood Pressure 123/72 06/12/24 18:23 Pulse Oximetry 97 06/12/24 18:23 Oxygen Delivery Room Air 06/12/24 18:23 MDM - Female Genitourinary MDM Narrative Medical decision making narrative: 38-year-old female presents emergency department for left flank pain that started yesterday. She went to urgent care earlier today and was diagnosed with the UTI, prescribed ciprofloxacin. Pain continued to worsen throughout the day so she came to the ED. Vitals are stable. She is afebrile nontoxic appearing. Exam significant for tenderness to the left CVA region, mild ttp to the LLQ. CBC without leukocytosis or anemia. Chemistries are unremarkable with normal kidney function. UA shows 2+ leuk esterase and nitrites, no wbc's, 5100 RBCs. Patient is currently on her menstrual cycle. Urine culture pending. is negative. Patient updated on results. She received morphine and Dilaudid with improvement. Suspect pain is secondary to pyelonephritis. Per chart review patient was prescribed Cipro b.i.d. for 7 days. She was advised to continue this medication along with naproxen which was sent to pharmacy. Advised follow-up with PCP discussed return precautions. She is agreeable with the plan verbalized understanding. Discharged in stable condition. Lab Data 06/12/24 18:31 06/12/24 18:31 Labs: Lab Results 06/12/24 06/12/24 Range/Units 18:31 18:38 WBC 7.6 (4.5-10.0) K/mm3 RBC 4.81 (4.2-5.4) M/mm3 Hgb 14.5 (12.0-15.0) g/dL Hct 44.3 (37.0-47.0) % MCV 92.1 (80-100) fl MCH 30.1 (26-34) pg MCHC 32.7 (32-36) g/dl RDW 13.2 (11.5-14.5) % Plt Count 321 (150-375) k/mm3 MPV 8.7 (7.4-10.4) fl Immature Gran % (Auto) 0.5 (0-0.5) % Neut % (Auto) 54.9 (45.5-73.1) % Lymph % (Auto) 30.7 (18.3-44.2) % [place] % (Auto) 12.7 H (2.6-8.5) % Eos % (Auto) 0.9 (0-4.4) % Baso % (Auto) 0.3 (0.2-1.2) % Lymph # (Auto) 2.34 (0.9-3.2) K/mm3 [place] # (Auto) 1.0 H (0.1-0.6) K/mm3 Eos # (Auto) 0.1 (0-0.3) K/mm3 Baso # (Auto) 0.0 (0.0-0.1) K/mm3 Abs Immat Gran (auto) 0.04 H (0.00-0.031) K/mm3 Absolute Neuts (auto) 4.2 (1.3-6.7) K/mm3 Absolute Nucleated RBC 0.000 (0.0-0.012) K/mm3 Nucleated RBC % 0.0 (0.0-0.2) % Sodium 139 (137-145) mmol/L Potassium 4.0 (3.4-5.0) mmol/L Chloride 107 (98-107) mmol/L Carbon Dioxide 24 (22-30) mmol/L Anion Gap 8 (4-12) mmol/L BUN 11 (7-17) mg/dL Creatinine 0.76 (0.7-1.0) mg/dL Estim Creat Clear Calc 101 ml/min Estimated GFR > 60 (59 - ) Glucose 87 (65-110) mg/dL Calcium 8.7 (8.4-10.2) mg/dL Total Bilirubin 0.8 (0.2-1.3) mg/dL AST 19 (14-36) U/L ALT 19 (6-35) U/L Alkaline Phosphatase 85 (38-126) U/L Total Protein 8.0 (6.3-8.2) g/dL Albumin 3.9 (3.5-5.1) g/dL Lipase 83 (23-300) U/L Urine Color Regent H (Yellow) Urine Appearance Cloudy H (Clear) Urine pH 5.5 (5.0-9.0) Ur Specific [place] 1.017 (1.001-1.035) Urine Protein 1+ H (Negative) mg/dL Urine Glucose (UA) Negative (Negative) mg/dL Urine Ketones Negative (Negative) mg/dL Ur Blood (Man) 3+ H (Negative) Urine Nitrate Positive H (Negative) Urine Bilirubin 2+ H (Negative) Urine Urobilinogen 1.0 (<2.0) mg/dL Add Ur Microanalysis Reviewed Leukocyte Esterase Rfl 2+ H (Negative) JORGE/UL Urine RBC 51-100 H (0-2) /hpf Urine WBC 0-5 (0-3) /hpf Ur Squamous Epith Cells Occasional (Few) /hpf Urine Bacteria None seen /hpf Urine Casts 0-2 POC Urine HCG, Qual Negative (Negative) Discharge Plan Discharge Clinical Impression: Pyelonephritis Patient Disposition: Home, Self-Care Condition: Stable Instructions: Antibiotic Form, Kidney Infection (ED), Flank Pain (ED) Additional Instructions: Please take the antibiotics as directed. Take naproxen as needed for pain. Follow-up with primary care provider. Return to the emergency department if you develop fever, inability to tolerate food or fluids, new, worsening or other concerning symptoms. Patient Language: Spanish Prescriptions: New naproxen 500 mg tablet 500 mg PO BID PRN (Reason: pain) Qty: 20 0RF No Action naproxen 500 mg tablet 500 mg PO BID Qty: 20 0RF Patient Comments: pt reports that she is not taking this med anymore methocarbamol 500 mg tablet 500 mg PO TID Qty: 21 0RF Rx Instructions: pt denies currently taking this med acetaminophen 500 mg tablet 500 mg PO Q6H PRN (Reason: pain) Qty: 30 0RF ondansetron 4 mg tablet,disintegrating 4 mg PO Q8H PRN (Reason: nausea and vomiting) Qty: 14 0RF dicyclomine 10 mg capsule 10 mg PO QID PRN (Reason: abdominal pain) Qty: 20 0RF Follow-up/Referrals: PHYSICIAN,AUTOMATIC TRIMMING SEWER [Primary Care Provider] - Landon Jimenez MD [Physician] -
[2024-06-12] MEDS: HYDROmorphone HCL INJ (*CRX) 1 MG/ML SYR 0.5 MG IV PUSH (20:24)
[2024-06-12] MEDS: KETOROLAC 15 MG/ML VIAL (*BKC) IV PUSH (20:59)
== END 2024-06-12 21:07 | disposition home or self-care (01) ==
PROVIDERS: Emergency Medicine; Emergency Provider Physician Assistant
DX: N12 Tubulo-interstitial nephritis, not specified as acute or chronic (principal)
CPT/HCPCS: 36415; 74176; 80053; 81001; 81025; 83690; 85025; 87086; 96374; 96375; 99284; J1171; J1885; J2270